=== PATIENT | female | born 1985 | race Caucasian/White ===

== ENCOUNTER 2022-01-09 22:06 | Emergency (ER) | payer OTHER ==
[2022-01-09 22:53] LABS: ANION GAP 14.4 mEq/L (7-13); CHLORIDE,CL 105 mmol/L (98-107); SODIUM,NA 141 mmol/L (136-145)
[2022-01-09] MEDS ORDERED: Iopamidol 612 MG/ML 100 ML Bottle IVPUSH ONE (23:32)
[2022-01-10] MEDS ORDERED: fentaNYL 100 MCG/2 ML SDV IVPUSH ONE (00:50)
== END 2022-01-10 01:04 | disposition home or self-care (01) ==
LOC: DL.ED 22:06
DX: N83.202 Unspecified ovarian cyst, left side (principal); Z90.710 Acquired absence of both cervix and uterus; Z88.1 Allergy status to other antibiotic agents
CPT/HCPCS: 36415; 74177; 80053; 81001; 83690; 83735; 85025; 96374; 99284; J3010; Q9967

== ENCOUNTER 2025-04-24 23:35 | Emergency (ER) | payer BC, OTHER ==
[2025-04-25 00:06] LABS: BASOPHILS PERCENT AUTO 0.1 % (0.0-1.0); EOSINOPHILS PERCENT AUTO 0.8 % (1.0-3.0); LYMPHOCYTES PERCENT AUTO 4.9 % (20.5-50.1); MONOCYTES PERCENT AUTO 5.9 % (2-8); NEUTROPHILS PERCENT AUTO 88.3 % (42.2-75.2); PLATELET COUNT,PLT 353 10^3/uL (150-450); RED BLOOD CELL COUNT 5.07 10^6/uL (4.2-5.4); WHITE BLOOD CELL COUNT,WBC 11.8 10^3/uL (5.0-10.0)
[2025-04-25 00:26] LABS: A/G RATIO 0.9; ALANINE AMINOTRANSFERASE,ALT 31 U/L (14-59); ASPARTATE AMNIOTRANSFERASE,AST 19 U/L (15-37); BILIRUBIN TOTAL 0.5 mg/dL (0.2-1.0); BLOOD UREA NITROGEN,BUN 12 mg/dL (7-18); CARBON DIOXIDE,CO2 25 mmol/L (21-32); CHLORIDE,CL 102 mmol/L (98-107); CREATININE 0.83 mg/dL (0.55-1.02); GLUCOSE RANDOM 117 mg/dL (70-99); POTASSIUM,K 4.0 mmol/L (3.5-5.1); PROTEIN TOTAL,TP 8.0 g/dL (6.4-8.2); SODIUM,NA 138 mmol/L (136-145)
[2025-04-25 00:30] LABS: LACTIC ACID 0.9 mmol/L (0.4-2.0)
[2025-04-25 00:36] LABS: ESTIMATED GFR 91 mL/min (>=60)
== END 2025-04-25 01:40 | disposition home or self-care (01) ==
LOC: DL.ED 23:35
DX: K52.9 Noninfective gastroenteritis and colitis, unspecified (principal); Z88.1 Allergy status to other antibiotic agents; Z79.890 Hormone replacement therapy; Z79.899 Other long term (current) drug therapy; Z90.49 Acquired absence of other specified parts of digestive tract
CPT/HCPCS: 36415; 80053; 83605; 83690; 83735; 85025; 96361; 96374; 99284; J2765; J7030